=== PATIENT | female | born 1995 | race Caucasian/White ===

== ENCOUNTER 2016-09-27 12:23 | Emergency (ER) | payer OTHER ==
--- NOTE | 2016-09-27 12:30 | PDOC ---
History of Present Illness - General Chief Complaint: Cold Symptoms Stated Complaint: CONGESTION & BODY ACHES, SORE THROAT, URINARY FREQ Time Seen by Provider: 09/27/16 12:29 History Source: Patient, Family Exam Limitations: No Limitations - History of Present Illness Initial Comments: 09/27/16 12:39 The patient is a 21-year-old female with no significant past medical history who presents to the emergency department with approximately 24 hours of dry cough, clear rhinorrhea, "head congestion and nasal congestion," mild sore throat, mild myalgia. She had a single episode of nausea with vomiting yesterday. She had 3 episodes of loose stools this morning. She denies abdominal pain. She denies urinary frequency, urgency, hesitancy, dysuria. She does say that her "urine feels warm." She denies rash. 09/27/16 12:40 09/27/16 12:42 Past History - Past Medical History Allergies/Adverse Reactions: Allergies Allergy/AdvReac Type Severity Reaction Status Date / Time No Known Allergies Allergy Verified 09/27/16 12:30 Home Medications: Ambulatory Orders Ibuprofen [Motrin -] 600 mg PO TID PRN #21 tablet 09/27/16 Review of Systems - Review of Systems Comments:: 09/27/16 12:30 CONSTITUTIONAL: Present: See history of present illness EYES: Absent: visual changes ENT: Present: See history of present illness Absent: ear pain CARDIOVASCULAR: Absent: chest pain, palpitations, loss of consciousness RESPIRATORY: Present: See history of present illness Absent: SOB GI: Present: See history of present illness Absent: abdominal pain, constipation GENITOURINARY: Absent: dysuria, frequency, hematuria MUSKULOSKELETAL: Absent: back pain, arthralgia, myalgia SKIN: Absent: rash NEURO: Absent: headache, dizziness 09/27/16 12:41 *Physical Exam - Physical Exam Comments: 09/27/16 12:30 GENERAL: Well-appearing, well-nourished. No apparent distress. HEENT: Normocephalic, atraumatic. PERRL, EOM intact. CARDIOVASCULAR: Normal S1, S2. Regular rate and rhythm. PULMONARY: Clear to auscultation bilaterally. ABDOMEN: Soft, non-distended, non-tender. EXTREMITIES: Normal ROM in all four extremities. No gross deformities. SKIN: Warm, dry. No rash NEUROLOGICAL: No focal neurological deficits. 09/27/16 12:41 Medical Decision Making - Medical Decision Making The patient is very well-appearing and in no acute distress There is no evidence of focal bacterial infection She seems to have a viral syndrome I offered her the possibility of labs as well as IV fluids and she declined She will be able to orally rehydrate She understands that she should return if she develops any new, persistent or worsening symptoms 09/27/16 12:41 09/27/16 13:02 Clinical impression: Viral syndrome 09/27/16 12:38 I discussed the physical exam findings and final diagnoses with the patient. I answered all of the patient's questions. The patient was satisfied with the care received and felt comfortable with the discharge plan and treatment plan. The patient will call their primary care physician within 24 hours to arrange follow-up and will return to the Emergency Department with any new, persistent or worsening symptoms. *DC/Admit/Observation/Transfer Diagnosis at time of Disposition: Viral syndrome - Discharge Dispostion Disposition: HOME Condition at time of disposition: Good - Prescriptions Prescriptions: Ibuprofen [Motrin -] 600 mg PO TID PRN #21 tablet PRN Reason: Pain - Referrals Referrals: Isidro Tomlinson MD [Primary Care Provider] - Call tomorrow - Patient Instructions Printed Discharge Instructions: DI for Viral Upper Respiratory Infection -- Adult Additional Instructions: Symptoms your having seem to be caused by a virus. You should take Motrin as needed for body ache. You should drink plenty of fluids. Return to the emergency department immediately with ANY new, persistent or worsening symptoms. You MUST call and follow up with your doctor tomorrow. Please make sure your doctor reviews the results of your emergency department evaluation. YOu had some protein in your urine and your doctor should repeat it to make sure that it goes away.
[2016-09-27 12:35] VITALS: BP 115/82; PULSE 92; TEMP 100.4; BMI 24.1
[2016-09-27] MEDS ORDERED: IBUPROFEN 400 MG TABLET (FP) PO ONE (12:37)
[2016-09-27] MEDS ORDERED: IBUPROFEN 600 MG TABLET (FP) PO ONE (12:43)
[2016-09-27 12:58] LABS: URINE APPEARANCE Clear; URINE BILIRUBIN Negative (NEGATIVE); URINE BLOOD Negative (NEGATIVE); URINE GLUCOSE (UA) Negative (NEGATIVE); URINE KETONE Negative (NEGATIVE); URINE LEUK ESTERASE Negative (NEGATIVE); URINE NITRITE Negative (NEGATIVE); URINE UROBILINOGEN 0.2 E.U/dl (0.2-1.0)
[2016-09-27 12:59] LABS: URINE COLOR AMBER; URINE PROTEIN 2+ (NEGATIVE)
[2016-09-27 13:16] LABS: URINE RBC 0-1 /hpf (0-3)
== END 2016-09-27 13:10 | disposition home or self-care (01) ==
LOC: FER 12:23
DX: B34.9 Viral infection, unspecified (principal)
CPT/HCPCS: 81003; 81015; 99282-25